=== PATIENT | male | born 1995 | race African-American/Black ===

== ENCOUNTER 2016-05-03 17:15 | Emergency (ER) | payer SELFPAY ==
--- NOTE | 2016-05-03 17:51 | ER Document Report ---
ED Medical Screen (RME) - General TRAVEL OUTSIDE OF THE [place] IN LAST 30 DAYS: No <ANISA FALK - Last Filed: 05/03/16 17:50> <RANDY ROCHE - Last Filed: 05/03/16 19:22> - General Chief Complaint: Suicidal Ideation Stated Complaint: PSYCH EVAL Notes: presents with suicidial ideations over the past couple of days I have greeted and performed a rapid initial assessment of this patient. A comprehensive ED assessment and evaluation of the patient, analysis of test results and completion of the medical decision making process will be conducted by additional ED providers. (ANISA FALK) - Related Data Allergies/Adverse Reactions: fish derived Allergy (Verified 05/03/16 17:33) KETCHUP Allergy (Uncoded 05/03/16 17:33) Past Medical History - Social History Chew tobacco use (# tins/day): No Frequency of alcohol use: None Drug Abuse: None Renal/ Medical History: Denies: Hx Peritoneal Dialysis <ANISA FALK - Last Filed: 05/03/16 17:50> Course - EKG Interpretation by Ri EKG shows normal: Sinus rhythm Rate: Normal Rhythm: NSR <RANDY ROCHE - Last Filed: 05/03/16 19:22>
--- NOTE | 2016-05-03 18:35 | ER Document Report ---
ED General - General Information source: Patient, Outside Facility Records - [facility] Mobile Crisis TRAVEL OUTSIDE OF THE [place] IN LAST 30 DAYS: No - HPI Patient complains to provider of: Suicidal Ideation Onset: This afternoon Associated symptoms: None Recently seen / treated by doctor: Yes - Admitted to [facility] for overdose attempt approx 3 weeks ago. <JAKE BARAHONA - Last Filed: 05/04/16 03:35> - General TRAVEL OUTSIDE OF THE [place] IN LAST 30 DAYS: No <RANDY ROCHE - Last Filed: 05/04/16 05:19> - General Chief Complaint: Suicidal Ideation Stated Complaint: PSYCH EVAL Notes: Patient is a 20-year-old male presenting to the emergency department accompanied by his [facility] mobile crisis premium representative who is concerned that he has suicidal ideation. The mobile crisis premium representative states that the patient has had 4 past attempts, and 3 weeks ago he was admitted to [facility] for an overdose. Patient called the crisis center today stating that he was having suicidal ideation, but now that he realizes he will have to stay here in the hospital, he states that he never had suicidal ideation. Patient states that he is concerned that he might have suicidal ideation due to a quart date coming up later this week. Patient denies homicidal ideation. Patient also denies being admitted for an overdose, and instead states that he was having his regular "rolling blackouts" that were associated with medication. Patient did say that he took 13-14 "pills" that may have caused his "rolling blackouts. " Patient denies any physical symptoms going on at this point in time. (JAKE BARAHONA) - Related Data Allergies/Adverse Reactions: fish derived Allergy (Verified 05/03/16 17:33) KETCHUP Allergy (Uncoded 05/03/16 17:33) Past Medical History - General Information source: Patient - Social History Smoking Status: Current Every Day Smoker Chew tobacco use (# tins/day): No Frequency of alcohol use: None Drug Abuse: None Family History: Reviewed & Not Pertinent Patient has suicidal ideation: Yes Patient has homicidal ideation: No Psychiatric Medical History: Reports: Hx Attention Deficit Hyperactivity Disorder, Hx Depression <JAKE BARAHONA - Last Filed: 05/04/16 03:35> - Social History Smoking Status: Current Every Day Smoker Chew tobacco use (# tins/day): No Frequency of alcohol use: None Drug Abuse: None Patient has suicidal ideation: Yes Patient has homicidal ideation: No Renal/ Medical History: Denies: Hx Peritoneal Dialysis <RANDY ROCHE - Last Filed: 05/04/16 05:19> Review of Systems - Review of Systems Constitutional: No symptoms reported EENT: No symptoms reported Cardiovascular: No symptoms reported Respiratory: No symptoms reported Gastrointestinal: No symptoms reported Genitourinary: No symptoms reported Male Genitourinary: No symptoms reported Musculoskeletal: No symptoms reported Skin: No symptoms reported Hematologic/Lymphatic: No symptoms reported Neurological/Psychological: See HPI, Depression, Suicidal ideation -: Yes All other systems reviewed and negative <JAKE BARAHONA - Last Filed: 05/04/16 03:35> Physical Exam - Vital signs Interpretation: Normal - General General appearance: Appears well, Alert - HEENT Head: Normocephalic, Atraumatic Eyes: Normal Pupils: PERRL - Respiratory Respiratory status: No respiratory distress Chest status: Nontender Breath sounds: Normal Chest palpation: Normal - Cardiovascular Rhythm: Regular Heart sounds: Normal auscultation Murmur: No - Abdominal Inspection: Normal Distension: No distension Bowel sounds: Normal Tenderness: Nontender Organomegaly: No organomegaly - Back Back: Normal, Nontender - Extremities General upper extremity: Normal inspection, Nontender, Normal color, Normal ROM , Normal temperature General lower extremity: Normal inspection, Nontender, Normal color, Normal ROM , Normal temperature - Neurological Neuro grossly intact: Yes Cognition: Normal Jone Coma Scale Eye Opening: Spontaneous [place] Coma Scale Verbal: Oriented Jone Coma Scale Motor: Obeys Commands Jone Coma Scale Total: 15 Speech: Normal - Psychological Associated symptoms: Normal affect, Normal mood - Skin Skin Temperature: Warm Skin Moisture: Dry Skin Color: Normal <JAKE BARAHONA - Last Filed: 05/04/16 03:35> Course - Laboratory Result Diagrams: 05/03/16 19:40 05/03/16 19:40 <JAKE BARAHONA - Last Filed: 05/04/16 03:35> - Laboratory Result Diagrams: 05/03/16 19:40 05/03/16 19:40 <RANDY ROCHE - Last Filed: 05/04/16 05:19> - Re-evaluation Re-evalutation: 05/03/16 18:34 Medical decision making: Patient with suicidal ideations without a specific plan however recent overdose resulting in admission to [facility]. Patient is otherwise healthy and has no medical complaints. Based on my clinical evaluation I do not feel there are any emergent medical issues requiring urgent intervention other than the psychiatric condition that he has presented for. ( RANDY ROCHE) - Vital Signs Vital signs: Temp Pulse Resp BP Pulse Ox 98.1 F 69 18 110/73 100 05/03/16 17:38 05/03/16 17:38 05/04/16 00:00 05/03/16 17:38 05/03/16 17:38 - Laboratory Laboratory results interpreted by me: 05/03/16 05/03/16 05/03/16 18:40 19:40 19:40 RDW 14.2 H Sodium 145.6 H Glucose 70 L Urine Blood SMALL H Salicylates < 1.0 L Acetaminophen < 10 L Discharge <JAKE BARAHONA - Last Filed: 05/04/16 03:35> <RANDY ROCHE - Last Filed: 05/04/16 05:19> - Discharge Clinical Impression: Suicidal ideations Condition: Stable Disposition: PSYCH HOSP/UNIT Scribe Attestation: 05/04/16 05:19 I personally performed the services described in the documentation, reviewed and edited the documentation which was dictated to the scribe in my presence, and it accurately records my words and actions. (RANDY ROCHE) Scribe Documentation <JAKE BARAHONA - Last Filed: 05/04/16 03:35> <RANDY ROCHE - Last Filed: 05/04/16 05:19> - Scribe Written by Scribe:: Dr. Quiroz (JAKE BARAHONA)
[2016-05-03 19:24] LABS: APPEARANCE,URINE CLEAR; BILIRUBIN,URINE NEGATIVE (NEGATIVE); GLUCOSE, URINE NEGATIVE (NEGATIVE); KETONES,URINE NEGATIVE (NEGATIVE); LEUKOCYTE ESTERASE,URINE NEGATIVE (NEGATIVE); NITRITE,URINE NEGATIVE (NEGATIVE); PROTEIN,URINE NEGATIVE (NEGATIVE); URINE SPECIFIC GRAVITY 1.019; UROBILINOGEN,URINE NEGATIVE mg/dL (<2.0)
[2016-05-03] MEDS ORDERED: NICOTINE 21 MG/24 HR PATCH.TD24 TD ONE (19:51)
[2016-05-03 19:58] LABS: ABSOLUTE LYMPHOCYTES (AUTO) 2.4 10^3/uL (0.5-4.7); ABSOLUTE MONOCYTES (AUTO) 0.7 10^3/uL (0.1-1.4); ABSOLUTE NEUT (AUTO) 6.2 10^3/uL (1.7-8.2); BASOPHILS % (AUTO) 0.2 % (0-2); EOSINOPHILS % (AUTO) 0.5 % (0-6); HEMATOCRIT 46.4 % (37.9-51.0); HEMOGLOBIN 14.9 g/dL (13.5-17.0); HGB HCT DIFFERENCE -1.7; LYMPHOCYTES % (AUTO) 25.8 % (13-45); MEAN CORPUSCULAR HEMOGLOBIN 27.9 pg (27.0-33.4); MEAN CORPUSCULAR HGB CONC 32.1 g/dL (32.0-36.0); MEAN CORPUSCULAR VOLUME 87 fl (80-97); MONOCYTES % (AUTO) 7.4 % (3-13); RED BLOOD COUNT 5.33 10^6/uL (4.35-5.55); RED CELL DISTRIBUTION WIDTH 14.2 % (11.5-14.0); SEGMENTED NEUTROPHILS % (AUTO) 66.1 % (42-78); WHITE BLOOD COUNT 9.4 10^3/uL (4.0-10.5)
[2016-05-03 19:58] LABS: URINE BARBITURATES SCREEN NEGATIVE; URINE METHADONE SCREEN NEGATIVE; URINE PHENCYCLIDINE SCREEN NEGATIVE
[2016-05-03 20:17] LABS: ALANINE AMINOTRANSFERASE 32 U/L (21-72); ALBUMIN 4.9 g/dL (3.5-5.0); ALKALINE PHOSPHATASE 72 U/L (38-126); ANION GAP 11 (5-19); ASPARTATE AMINO TRANSFERASE 27 U/L (17-59); BILIRUBIN,TOTAL 0.8 mg/dL (0.2-1.3); BLOOD UREA NITROGEN 10 mg/dL (7-20); CARBON DIOXIDE 28 mmol/L (22-30); CHLORIDE 107 mmol/L (98-107); CREATININE RESULT 0.98 mg/dL (0.52-1.25); GLUCOSE 70 mg/dL (75-110); POTASSIUM 3.8 mmol/L (3.6-5.0); SODIUM 145.6 mmol/L (137-145); TOTAL PROTEIN 7.7 g/dL (6.3-8.2)
[2016-05-03 20:19] LABS: ALCOHOL < 10 mg/dL (NONE DETECTED)
--- NOTE | 2016-05-04 08:02 | EKG REPORT ---
SEVERITY:- BORDERLINE ECG - SINUS RHYTHM PROBABLE LEFT ATRIAL ABNORMALITY : Confirmed by: Adi Olmedo MD 04-May-2016 08:01:31
--- NOTE | 2016-05-04 12:56 | PSYCHOLOGICAL NOTE ---
Psych Note - Psych Note Psych Note: Patient is a 20 year old male who presents via [facility] due to possible suicidal ideations over upcoming court date this week. Patient states he was not suicidal, instead wanted to talk with someone so he called mobile crisis. Patient states he had court this morning and that he is facing detention time over what he refers to as fictitious charges. Patient reports he and a friend got into a disagreement and she pressed charges that he took property from her. Patient states he received a new charge from the same person, which is now technically a probation violation which could result in 8-11 months of detention time. Patient states he does have anxiety and ADD, but does not take any medications. He states he called mobile crisis to talk about how he felt, and he misunderstood the person when talking about suicidal ideations, and thought she was asking about his suicide attempt 3 weeks ago. Patient states he was hopeless after this legal scott, and chose to overdose on Tylenol PM. Patient states he is no where near that emotional place, and has the support systems in place to cope. Patient states he thought he was doing the right thing by reaching out for someone to talk to, but he did not know that he would end up here. Patient denies current suicidal ideations. Patient states he resides with his mother, and his friends who is bedside is with him all the time. [facility] mobile woodworker [place] area code [phone] states the patient has been calling her dispatch throughout today, and attempted to use a pseudo-name of "Jacob Giraldo." Worker reports he called yesterday after he sent a barrage of text messages to his giving officer stating he was going to commit suicide. She states that he would not agree to be safe and she had no choice but to accompany him here. Worker reports the giving officer is concerned and would like to speak with someone. Discussed with worker any secondary gain, which she verbally agreed is evident. Example, patient was facing 90 days in detention this morning at his court date. Discussed with worker that patient is denying suicidal ideations, has been observed all morning smiling and engaging with staff as well as his friends who is bedside. Patient's giving officer, [facility] area code [phone] states: left msg requesting return contact multiple times throughout the day. Patient is alert and oriented 4. Mood is anxious with smiling affect. Patient denies suicidal/homicidal ideations, intent, plan, means. Patient denies A/VH; delusions not noted. Thought processes were goal oriented towards discharge. Conversational speech was fast for rate, tone, and prosody. Intellectual abilities were estimated within average range. Attention and focus were fair. Insight, judgment, impulse control were poor. Diagnosis: Deferred Patient is psychiatrically cleared for discharge. Patient presents misusing the emergency medicine department and mental health system by attempting to avoid detention time. Patient does not meet criteria for inpatient psychiatric commitment or involuntary commitment due to him denying suicidal/homicidal ideations, a friend who is bedside will assume responsibility for him and assist him home. Patient is strongly encouraged to follow-up with [facility].
--- NOTE | 2016-05-04 13:29 | ER Document Report ---
Doctor's Note Notes: 05/04/16 13:28 Rounds: Chart reviewed and patient interviewed. Patient is being evaluated for suicidal ideation. Reportedly took an overdose and was admitted to [facility] 3 weeks ago. Vital signs are all normal. Admission labs were normal with the exception of being positive drug screen for marijuana. Patient appears to be medically stable for transfer or discharge. Mihai Oneal M.D.
[2016-05-04] MEDS ORDERED: NICOTINE 21 MG/24 HR PATCH.TD24 TD PRN (14:58)
[2016-05-04 17:13] VITALS: BP 116/72
== END 2016-05-04 17:30 | disposition home or self-care (01) ==
LOC: ER 17:15
DX: R45.851 Suicidal ideations (principal); F32.9 Major depressive disorder, single episode, unspecified; F17.200 Nicotine dependence, unspecified, uncomplicated; Z91.5 Personal history of self-harm; Z91.013 Allergy to seafood; Z91.018 Allergy to other foods
CPT/HCPCS: 36415; 80053; 80307; 81001; 85025; 93005; 93010; 99285